=== PATIENT | female | born 1960 | race Caucasian/White ===

== ENCOUNTER 2019-07-24 07:51 | Outpatient (CLI) | payer OTHER ==
--- NOTE | 2019-07-24 10:10 | MRI ---
Exam: Brain MRI with and without contrast HISTORY: Headache COMPARISON: None FINDINGS: Gradient echo sequence: No hemorrhage Calvarium: Appropriate T1 marrow signal intensity Midline brain parenchyma: Unremarkable Cerebrum:No parenchymal mass, mass effect or midline shift. Brain volume is age-appropriate. Cortical aden-white matter differentiation is preserved. Minimal scattered T2 and FLAIR white matter hyperintensities, likely representing chronic small vessel ischemic change. Ventricles: No evidence of hydrocephalus. Sinuses and mastoid air cells: Adequate aeration Diffusion: Central arterial flow is maintained. Absent restricted diffusion. Postcontrast images: No pathologic enhancement of the brain parenchyma. IMPRESSION: 1. Unremarkable pre and postcontrast brain MRI. 2. Minimal scattered T2 and FLAIR white matter hyperintensities, likely due to chronic small vessel i schemic change. 3. Absent restricted diffusion. No pathologic enhancement.
== END 2019-07-24 07:52 | disposition home or self-care (01) ==
LOC: BICMRI 07:51
PROVIDERS: ATTEND Family Medicine
DX: G44.1 Vascular headache, not elsewhere classified (principal)
CPT/HCPCS: 70553; 82565

== ENCOUNTER 2020-10-19 09:34 | Inpatient (IN) | payer BC ==
[2020-10-19] MEDS ORDERED: Morphine 4 MG/ML VIAL ONE (09:40)
--- NOTE | 2020-10-19 09:53 | RAD ---
RADIOGRAPH CHEST 1 VIEW: DATE: 10/19/2020 HISTORY: 60-year-old female for preoperative clearance. FINDINGS: Shallow inspiration. Mild patchy densities at base of left lower lobe. On CT of abdomen, this was annabelle wn to represent a combination of paracardial fat pad and subsegmental atelectasis. There is no consolidation, pulmonary edema, or pneumothorax. The lateral costophrenic angles are not effaced. IMPRESSION: No consolidation
[2020-10-19 10:31] LABS: INR-International Normal Ratio 1.1; PTT 27.8 sec (22.9-36.1); Prothrombin Time 14.5 sec (12.0-14.7)
--- NOTE | 2020-10-19 10:32 | HP ---
HISTORY OF PRESENT ILLNESS: Ms. Mejia is a 60-year-old woman, who presented to [facility] in [place] with insidious onset that was started as a periumbilical abdominal pain 2 days ago and is now generalized over the last 24 hours. She describes her pain as sharp, rated at 8/10, associated with multiple episodes of nausea and nonbilious emesis. She admits to some chills, but no fever, although while in the emergency department, she was recorded with fever. PAST MEDICAL HISTORY: Significant for; 1. Chronic back pain. 2. Mitral valve prolapse. 3. Scoliosis. 4. Migraines. PAST SURGICAL HISTORY: Pertinent for; 1. Three back surgeries. 2. Bilateral wrist fractures that required operative intervention at different times. She denies any cardiac or abdominal surgeries. SOCIAL HISTORY: The patient denies any cigarette smoking or illicit drug abuse. She admits to occasional intake of ethanol in moderate amounts. FAMILY HISTORY: Noncontributory for this patient's age. CURRENT MEDICATION: Includes; 1. Claritin 10 mg p.o. daily. 2. Flexeril 10 mg p.o. at bedtime. 3. Simvastatin 10 mg p.o. daily. 4. Zyrtec 10 mg p.o. daily. ALLERGIES: AMOXICILLIN, CEPHALEXIN, AND SULFA DRUGS. REVIEW OF SYSTEMS: Ten-point review of systems essentially unremarkable except as stated in past medical history and chief complaint. PHYSICAL EXAMINATION: GENERAL: This reveals a 60-year-old normally developed woman, who is otherwise coherent and interactive and appears stated age. The patient is alert and oriented x3. She appears to be in acute distress secondary to severe abdominal pain. VITAL SIGNS: Include blood pressure 146/88, pulse is 108, respiratory rate is 18, temperature 100.6 degrees Fahrenheit, oxygen saturation is 98% on room air. HEENT: Pupils are equal, round, reactive to light and accommodation. She has no jugular venous distention noted. Sclerae are anicteric. HEART: Reveals regular rate with sinus tachycardia. No murmurs or gallops auscultated. LUNGS: Clear to auscultation bilaterally. Her breathing is regular and nonlabored. ABDOMEN: Soft, moderately distended, and diffusely tender to palpation. Liver and spleen otherwise nonpalpable below costal margins. NEUROLOGIC: Reveals no focal deficits present. LABORATORY FINDINGS: Today includes CBC from bolusing with 3400 white blood cells, hemoglobin and hematocrit 15.1 and 46.4 respectively. Platelet count is 152,000. Metabolic profile; sodium 136, potassium 4.1, chloride is 100, bicarb is 23, BUN 11, creatinine is 1.0, glucose 175, total bilirubin 0.2, AST and ALT normal at 21 and 31 respectively. Serum lipase is normal at 23 units/L. Urinalysis today is essentially unremarkable. PTT and INR have been ordered, results pending at time of the dictation. I have personally reviewed the CT scan of the abdomen and pelvis today, which is remarkable for dilated appendix approximately 2 cm in width with multiple appendicoliths. There is significant periappendiceal fat stranding and free fluid. No significant pneumoperitoneum is evident. IMPRESSION: 1. Acute appendicitis with rupture. 2. History of chronic back pain. RECOMMENDATIONS AND PLAN: Laparoscopic appendectomy. Above findings and recommendations have been discussed with the patient in the presence of her nurse. I have advised the patient of the risks and benefits of the proposed surgery to include, but not limited to, bleeding, infection, injury to bowel or surrounding structures. The patient indicates understanding of this information and has granted consent for admission and surgical intervention. Job ID: [id number]
[2020-10-19 11:05] LABS: SARS-CoV-2 NAA Rapid Test Not Detected (NotDetected)
[2020-10-19] MEDS ORDERED: PHENYLEPHRINE-NS 100 MCG/ML 10 ML SYRINGE ONE (11:57)
[2020-10-19] MEDS ORDERED: Ondansetron PF 4 MG/2 ML Vial ONE (11:57)
[2020-10-19] MEDS ORDERED: PROPOFOL 200 MG/20 ML VIAL ONE (11:57)
[2020-10-19] MEDS ORDERED: ePHEDrine 50 MG/ML VIAL ONE (11:57)
[2020-10-19] MEDS ORDERED: Dexamethasone 20 MG/5 ML VIAL ONE (11:57)
[2020-10-19] MEDS ORDERED: Succinylcholine 200 MG/10 ml SYRINGE FS ONE (11:57)
[2020-10-19] MEDS ORDERED: Glycopyrrolate 0.2 MG/ML 5 ML SYRINGE ONE (11:57)
[2020-10-19] MEDS ORDERED: Rocuronium Bromide 10 MG/ML (10ML VIAL) ONE (11:57)
[2020-10-19] MEDS ORDERED: Insulin Regular 300 UNITS/3 ML VIAL SC PRN ×2 (12:33)
[2020-10-19] MEDS ORDERED: Morphine 2 MG/ML VIAL SLOW IVP PRN (12:33)
[2020-10-19] MEDS ORDERED: Dextrose 5% in Water 1,000 ML IV PRN (12:33)
[2020-10-19] MEDS ORDERED: Dextrose 50% Abboject 50 ML SYRINGE SLOW IVP PRN (12:33)
[2020-10-19] MEDS ORDERED: hydrALAZINE 20 MG/ML VIAL SLOW IVP PRN (12:33)
[2020-10-19] MEDS ORDERED: Promethazine HCl 25 MG/ML VIAL IM PRN ×2 (12:33→19:11)
[2020-10-19] MEDS ORDERED: Ondansetron PF 4 MG/2 ML Vial IVP PRN (12:33)
[2020-10-19] MEDS: Acetaminophen 325 MG TAB PO SCH ×3 (13:15→23:23)
[2020-10-19] MEDS ORDERED: Meropenem 1 GM in Sodium Chloride 0.9% 100 ML IVPB SCH (14:00)
[2020-10-19 14:10] VITALS: BMI 31.2
[2020-10-19] MEDS: Sodium Chloride 0.9% 1,000 ML IV SCH (14:48)
[2020-10-19] MEDS ORDERED: Morphine 2 MG/ML VIAL ONE (16:39)
[2020-10-19] MEDS ORDERED: Fentanyl 100 MCG/2 ML VIAL ONE ×2 (17:01→17:37)
[2020-10-19] MEDS ORDERED: Bupivacaine 0.25% HCL 30 ML VIAL ONE (17:11)
[2020-10-19] MEDS ORDERED: EPINEPHrine 1 MG/ML AMP ONE (17:11)
[2020-10-19] MEDS ORDERED: SUGAMMADEX SODIUM 200 MG/2 ML VIAL ONE (19:02)
[2020-10-19] MEDS ORDERED: Promethazine HCl 25 MG/ML VIAL SLOW IVP PRN (19:11)
[2020-10-19] MEDS ORDERED: Ondansetron HCl/PF 4 MG/2 ML Vial IVP PRN (19:11)
--- NOTE | 2020-10-19 19:47 | OP ---
DATE OF PROCEDURE: 10/19/2020 PREOPERATIVE DIAGNOSIS: Acute appendicitis with perforation. POSTOPERATIVE DIAGNOSES: 1. Acute appendicitis with perforation. 2. Peritoneal abscesses. OPERATIONS PERFORMED: 1. Laparoscopic appendectomy. 2. Drainage of peritoneal abscesses. ANESTHESIA: General endotracheal. ESTIMATED BLOOD LOSS: 20 mL. FLUIDS GIVEN: 1000 mL crystalloids. URINARY OUTPUT: 600 mL. COUNTS: Sponge and instrument counts were verified as correct x2. COMPLICATIONS: None apparent at the time of operation. INDICATIONS FOR OPERATION: A 60-year-old woman, presented with 2-day history of what started as periumbilical abdominal pain, which become generalized by today. Clinical and radiographic examination were consistent with acute appendicitis with perforation for which the patient was brought to the operating room for appendectomy. Findings are consistent with suppurative, perforated acute appendicitis with peritoneal abscesses. DESCRIPTION OF OPERATION: Informed consent was obtained from the patient, was brought to the operating room and placed in supine position. Following general anesthesia, Lara catheter was inserted and placed to bedside drain. The abdomen was sterilely prepped and draped in usual fashion. Skin below the umbilicus was infiltrated with 0.25% Marcaine with epinephrine. A small curvilinear infraumbilical incision was made using an 11 scalpel. Umbilical stalk was grasped with Karla and elevated. Veress needle was inserted through the incision and placed in the peritoneal cavity, through which the abdomen was insufflated with 3 L of CO2 gas. Intraabdominal pressure noted at 1 mmHg. Following abdominal insufflation, the Veress needle was removed and a 5 mm trocar introduced using a Visiport under laparoscopy. Laparoscopy confirmed proper placement of the port. No injuries to underlying structures. Additional laparoscopy reveals extensive amount of intraperitoneal fibrinous exudates with cloudy ascitic fluid. Significant omental adhesions obscured the right lower quadrant. Under direct laparoscopy, a 5 mm left lower quadrant port was placed after the overlying skin was infiltrated with 0.25% Marcaine with epinephrine. Appropriate incision was made. I then introduced the Endo suction catheter with cautery, using this to bluntly take down omental adhesions off the anterior abdominal wall, exposing a large amount of purulent fluid in the deep pelvis which was suctioned out. At that juncture, a 5 mm suprapubic port was placed under direct vision after the overlying skin was infiltrated with 0.25% Marcaine with epinephrine. The patient was then placed in a Trendelenburg position and rotated to her left. I introduced a Prestige grasper through the left lower quadrant port site, using this to bluntly tease apart small bowel and omental adhesions. I was then able to trace the distal ileum to the appendix. I did not find any Meckel diverticulum. An intrapelvic suppurative appendix was identified, which was perforated at the base. I then introduced the Endo [place] forceps through the suprapubic port site grasping the appendix, which was elevated. Mesoappendix was then serially divided down to the base using a LigaSure device with good hemostasis. The appendix itself was divided at the appendicocecal junction between Endoloop and then delivered off the abdominal cavity using an EndoCatch. Operative site was copiously irrigated with saline until it was clear. A #19 Arthur drain was introduced into the pelvic cavity and allowing this to exit through the left lower quadrant port site. The catheter was secured to the anterior abdominal wall using 2-0 silk suture. All ports and instruments were removed and accounted for after the abdomen was desufflated. Skin incisions were closed using 4-0 Monocryl suture in subcuticular fashion. Dermabond was applied over incisional closure. The patient tolerated this operation without any apparent complication and was returned to recovery room in satisfactory condition. Job ID: [id number]
[2020-10-19] MEDS: Famotidine 20 MG TAB PO SCH (20:35)
[2020-10-19] MEDS: Ibuprofen 600 MG TAB PO PRN (20:35)
[2020-10-19] MEDS: Famotidine/PF 20 mg/2ml Vial SLOW IVP SCH (20:35)
[2020-10-19] MEDS: metroNIDAZOLE 500 MG in Premix Bag 1 BAG IVPB SCH (23:24)
[2020-10-20] MEDS: Acetaminophen 325 MG TAB PO SCH ×4 (05:11→23:09)
[2020-10-20] MEDS: metroNIDAZOLE 500 MG in Premix Bag 1 BAG IVPB SCH ×4 (05:13→23:09)
[2020-10-20 06:15] LABS: Phosphorus 2.4 mg/dL (2.3-4.7)
[2020-10-20 06:16] LABS: Anion Gap 14 mmol/L (10-20); BUN (Urea Nitrogen) 14 mg/dL (9.8-20.1); Calc. Creatinine Clearance 86 mL/min (70-130); Calcium 7.9 mg/dL (7.8-10.44); Carbon Dioxide 21 mmol/L (23-31); Chloride 105 mmol/L (98-107); Glucose 143 mg/dL (80-115); Magnesium 1.8 mg/dL (1.6-2.6); Potassium 4.1 mmol/L (3.5-5.1); Sodium 136 mmol/L (136-145)
[2020-10-20 06:30] LABS: Band 36 % (5-11); Hemoglobin 12.4 g/dL (12.0-16.0); Lymphocytes 8 % (21-51); MDiff Complete? YES; Mean Corpuscular Hemoglobin 31.9 pg (27.0-31.0); Mean Corpuscular Volume 96.6 fL (78.0-98.0); Mean Platelet Volume 7.7 fL (7.4-10.4); Metamyelocyte 3 % (0-0); Monocytes 7 % (0-10); Neutrophil 46 % (42-75); Platelet Count 131 thou/uL (130-400); Platelet Morphology Comment Appears Adequate; RBC Distribution Width 12.5 % (11.5-14.5); Red Blood Cell (RBC) Count 3.87 mill/uL (4.20-5.40); White Blood Cell (WBC) Count 5.5 thou/uL (4.8-10.8)
[2020-10-20] MEDS ORDERED: Magnesium Sulfate 2 GM in Sodium Chloride 0.9% 250 ML 250 ML IVPB SCH (08:00)
[2020-10-20] MEDS ORDERED: Magnesium 2 GM/50 ML 2 GM in Premix Bag 1 BAG IVPB SCH (08:00)
[2020-10-20] MEDS: Famotidine/PF 20 mg/2ml Vial SLOW IVP SCH ×2 (08:58→20:31)
[2020-10-20] MEDS: Enoxaparin Sodium 40 MG/0.4 ML SYRINGE SC SCH (08:58)
[2020-10-20] MEDS: Famotidine 20 MG TAB PO SCH ×2 (08:58→20:17)
[2020-10-20] MEDS: Saccharomyces boulardii 250 MG CAP PO SCH (08:58)
[2020-10-20] MEDS: Sodium Chloride 0.9% 1,000 ML IV SCH ×3 (09:04→20:18)
--- NOTE | 2020-10-20 16:04 | PRG ---
DATE OF SERVICE: 10/20/2020 SUBJECTIVE: Ms. Mejia is a 60-year-old woman who is postoperative day #1, status post laparoscopic appendectomy and drainage of peritoneal abscesses. The patient is awake and alert this morning, reporting adequate pain control. She is passing some flatus, having good urinary output. She denies any nausea or vomiting. OBJECTIVE: VITAL SIGNS: This morning include blood pressure 111/65, pulse 82, respiratory rate is 16, temperature 97.7 degrees Fahrenheit, and oxygen saturation is 95% on room air. HEART: Regular rate and rhythm. LUNGS: Clear to auscultation bilaterally. Breathing, regular and unlabored. ABDOMEN: Soft and nondistended. Incisions are intact, clean, and dry. Zheng-Whitlock drain has returned 160 mL of serosanguineous fluid over the last 24 hours. She has no peritoneal signs on examination. LABORATORY FINDINGS: Today include a CBC with 5500 white blood cells, hemoglobin and hematocrit stable at 12.4 and 37.4 respectively, and platelet count is 131,000. Metabolic profile: Sodium 136, potassium 4.1, chloride is 105, bicarb is 21, BUN 14, creatinine 0.87, and glucose 143. Magnesium 1.8. Phosphorus is 2.4. IMPRESSION: Postoperative day #1, status post laparoscopic appendectomy and drainage of peritoneal abscesses. PLAN: 1. The patient will be started on a clear liquid diet. 2. We will continue intravenous antibiotic therapy, which will be converted to p.o. tomorrow if tolerating oral intake. 3. Increase activity per Physical and Occupational Therapy. 4. The patient indicates understanding information provided. I have answered her questions. 5. Anticipate discharge to home over the next 24 to 48 hours if she remains stable. Job ID: [id number]
[2020-10-20] MEDS: Ibuprofen 600 MG TAB PO PRN (20:17)
[2020-10-21] MEDS: Acetaminophen 325 MG TAB PO SCH ×4 (05:35→23:05)
[2020-10-21] MEDS: metroNIDAZOLE 500 MG in Premix Bag 1 BAG IVPB SCH (05:36)
[2020-10-21] MEDS: Saccharomyces boulardii 250 MG CAP PO SCH (09:06)
[2020-10-21] MEDS: Enoxaparin Sodium 40 MG/0.4 ML SYRINGE SC SCH (09:06)
--- NOTE | 2020-10-21 14:15 | PRG ---
DATE OF SERVICE: 10/21/2020 SUBJECTIVE: The patient is a 60-year-old female, postop day two, status post laparoscopic appendectomy and drainage of peritoneal abscesses. The patient states that her pain is well controlled on Tylenol and Motrin alone. The patient is having some flatus and adequate urinary output. Tolerated diet well, no nausea and vomiting. OBJECTIVE: VITAL SIGNS: Blood pressure 129/82, pulse 80, respirations 16, temperature 97.6, O2 saturation 96% on room air. HEART: Regular rate and rhythm. LUNGS: Breathing regular and nonlabored. ABDOMEN: Soft, nondistended. Incisions are intact, clean and dry. TYREL drain had serosanguineous fluid. LABORATORY FINDINGS: No new labs overnight. ASSESSMENT: Postoperative day two, status post laparoscopic appendectomy and drainage of peritoneal abscesses. PLAN: The patient's antibiotics will be switched over from IV to p.o. We will increase diet from full liquids to regular diet. Continue supportive treatment. Pain controlled on Tylenol and ibuprofen. The patient will likely be sent home on this regimen. The patient likely to be discharged either today or tomorrow. Job ID: [id number] MTDD
[2020-10-21] MEDS: metroNIDAZOLE 500 MG TAB PO SCH ×2 (15:42→20:01)
[2020-10-21] MEDS: Ibuprofen 600 MG TAB PO PRN (15:45)
[2020-10-21] MEDS ORDERED: Loratadine 10 MG TAB PO SCH (21:00)
[2020-10-21] MEDS: Sodium Chloride 0.9% 1,000 ML IV SCH (22:25)
[2020-10-22] MEDS: Acetaminophen 325 MG TAB PO SCH ×2 (05:06→11:49)
[2020-10-22] MEDS: metroNIDAZOLE 500 MG TAB PO SCH (08:28)
[2020-10-22] MEDS: Saccharomyces boulardii 250 MG CAP PO SCH (08:28)
[2020-10-22] MEDS: Enoxaparin Sodium 40 MG/0.4 ML SYRINGE SC SCH (08:29)
[2020-10-22] MEDS ORDERED: Loratadine 10 MG TAB PO SCH (09:00)
[2020-10-22] MEDS ORDERED: Rosuvastatin 5 MG TAB PO SCH ×2 (09:00→21:00)
[2020-10-22] MEDS ORDERED: Non-Formulary Item 1 EACH (Cetirizine Hcl [Zyrtec] 10 MG Capsule) PO SCH (09:00)
[2020-10-22 12:01] VITALS: BP 128/76; TEMP 98
--- NOTE | 2020-10-22 17:21 | DIS ---
DATE OF ADMISSION: 10/19/2020 DATE OF DISCHARGE: 10/22/2020 DISCHARGE PHYSICIAN: Nilo Villalobos DO ADMITTING DIAGNOSIS: Acute appendicitis, ruptured. DISCHARGE DIAGNOSIS: Acute appendicitis, ruptured plus peritoneal abscesses. PROCEDURE PERFORMED: Laparoscopic appendectomy with drainage of peritoneal abscesses on 10/19/[address] Villalobos. Please see separate dictation for operative report. HISTORY AND HOSPITAL COURSE: A 60-year-old woman presented with 2- to 3-day history of abdominal pain. Clinical and radiographic examination were consistent with acute appendicitis with perforation, for which the patient was taken to the operating room for laparoscopic appendectomy. Findings in surgery included suppurative appendicitis with rupture and peritoneal abscesses which required drainage. Following surgery, the patient was admitted to surgical floor, where she remained at time of discharge. Postop day #3 today, the patient is ambulating with minimum difficulty. She is now tolerating general diet having normal bowel and urinary function. Pain is adequately controlled on oral analgesics. She has been on oral antibiotics since yesterday and has had no fevers or chills. Abdominal examination today reveals intact incisional wounds. The Zheng-Whitlock drain was noted with 30 mL of serous fluid over the previous 24 hours and the drain was removed without incident. Clearly, the patient had no peritoneal signs on examination today. She has maximized hospital benefit and was discharged home today with the following instructions: 1. She follows up with me in the Surgery Clinic in 2 weeks. 2. She may take Tylenol 1000 mg p.o. q.6 hours alternating this with ibuprofen 600 mg p.o. q.8 hours p.r.n. pain. 3. She is also given a prescription today for metronidazole 500 mg p.o. t.i.d. and levofloxacin 750 mg p.o. daily, both for 10 days. She is also to take Florastor 250 mg p.o. daily. She is given prescription for 30 capsules. The patient is instructed to avoid weight lifting in excess of 20 pounds until she has been released by me. 4. She may shower and avoid swimming or taking baths until she has been released by me. 5. She is to call me with any questions or problems including fever in excess of 101 degrees Fahrenheit, intolerance to oral intake, exacerbation of abdominal pain, or any abnormal drainage from incisional wounds. 6. The patient indicates understanding information provided to her today. 7. I have answered her questions. The patient has expressed gratitude for the care rendered to her during this hospitalization and surgery. Job ID: [id number]
== END 2020-10-22 13:05 | disposition home or self-care (01) | DRG 340 ==
LOC: ERS 09:34 → SURG B 09:52
PROVIDERS: ADMIT Surgery; ATTEND Surgery
PROC: 0DTJ4ZZ Resection of Appendix, Percutaneous Endoscopic Approach (ICD-10-PCS; principal; 2020-10-19)
PROC: 0W9J4ZZ Drainage of Pelvic Cavity, Percutaneous Endoscopic Approach (ICD-10-PCS; 2020-10-19)
DX: K35.33 Acute appendicitis with perforation, localized peritonitis, and gangrene, with abscess (principal); M41.9 Scoliosis, unspecified; G89.29 Other chronic pain; Z20.822 Contact with and (suspected) exposure to COVID-19; G43.909 Migraine, unspecified, not intractable, without status migrainosus; I34.1 Nonrheumatic mitral (valve) prolapse; I10 Essential (primary) hypertension; Z98.1 Arthrodesis status; Z88.1 Allergy status to other antibiotic agents; Z88.2 Allergy status to sulfonamides; Z88.8 Allergy status to other drugs, medicaments and biological substances; Z79.899 Other long term (current) drug therapy
CPT/HCPCS: 0240U; 36415; 71045; 80048; 83735; 84100; 85025; 85610; 85730; 86850; 86900; 86901; 88304; 93005; 96374; J0171; J1100; J1650; J1956; J2185; J2270; J2405; J2704; J3010; J3475; J3490; S0020; S0028

== ENCOUNTER 2020-12-04 07:54 | Outpatient (CLI) | payer BC ==
--- NOTE | 2020-12-04 08:58 | CT ---
CT ABDOMEN AND PELVIS WITH IV CONTRAST 12/04/2020 CLINICAL INFORMATION: History of prior appendectomy secondary to ruptured appendix. COMPARISON: 10/19/2020 Technique: Multiple contiguous axial CT images are obtained through the abdomen and pelvis with IV contrast. Cor onal reformatted images are provided. FINDINGS: Lower Chest: Minimal dependent atelectasis at each lung base. Vessels: Mild vascular calcifications in the abdominal aorta. Abdomen: Portal vein:Patent Gallbladder: Within normal limits for CT imaging. Liver: There is a subcentimeter low-density focus seen in the posteromedial aspect of the medial segm ent right hepatic lobe with an additional more subtle hypodense lesion closely adjacent to this lesion. Subcentimeter hypodense lesion is seen in the posterior segment right hepatic lobe. These les ions were also present on prior exam but better delineated on today's examination. These hypodense lesions are too small to further characterize. Continued follow-up is recommended. Spleen: within normal limits. Pancreas: within normal limits. Adrenals: within normal limits. Kidneys: Stable superior pole left renal cyst is noted. Kidneys otherwise have a normal CT appearance bilaterally. Bowel: Scattered colonic diverticula are present. Loops of small bowel are normal in caliber. Appendix: Not visualized compatible with patient's history of prior appendectomy. There is minimal st randing adjacent to the cecal apex which may represent postoperative change and/or areas of scarring. Peritoneum: No free intraperitoneal gas or fluid is seen. There is no fluid collection seen to sugges t an abscess. Mesentery and Retroperitoneum: No enlarged mesenteric or retroperitoneal lymph nodes. Abdominal Wall: within normal limits. Pelvis: Reproductive Organs: No pelvic masses. Bladder: within normal limits. Bones: Degenerative changes are again seen in the spine. IMPRESSION: 1. Subcentimeter low-density lesions within the liver are difficult to further characterize due to ve ry small size. Follow-up evaluation in 6 months is recommended. 2. Left renal cysts. 3. Colonic diverticulosis. 4. Nonvisualization of the appendix compatible with patient's surgical history of appendectomy. Minim al stranding is seen adjacent to the cecal apex which may represent postoperative changes and mild scarring. No fluid collection is seen to suggest an abscess.
[2020-12-04] MEDS ORDERED: Iopamidol 370 76% 100 ML VIAL ONE (14:14)
== END 2020-12-04 07:55 | disposition home or self-care (01) ==
LOC: CT 07:54
PROVIDERS: ATTEND Surgery
DX: K35.33 Acute appendicitis with perforation, localized peritonitis, and gangrene, with abscess (principal); K76.9 Liver disease, unspecified; N28.1 Cyst of kidney, acquired; K57.30 Diverticulosis of large intestine without perforation or abscess without bleeding
CPT/HCPCS: 74177; 82565; Q9967

== ENCOUNTER 2024-03-17 10:47 | Outpatient (CLI) | payer BC | END 2024-03-17 10:48 | disposition home or self-care (01) | LOC: BICRAD 10:47 | PROVIDERS: ATTEND Family Medicine | DX: R06.02 Shortness of breath (principal) | CPT/HCPCS: 71046 ==